=== PATIENT | female | born 1965 | race Caucasian/White ===

== ENCOUNTER 2018-09-14 10:38 | Emergency (ER) | payer MEDICARE, OTHER ==
[2018-09-14] MEDS ORDERED: HYDROcodone/Acetaminophen 5/325 mg Tablet ONE (11:49)
[2018-09-14] MEDS ORDERED: Ondansetron ODT 4 MG TAB ONE (11:49)
--- NOTE | 2018-09-14 12:11 | RAD ---
RIGHT CLAVICLE RADIOGRAPHS 2 VIEWS: DATE: 09/14/2018. PROVIDED CLINICAL HISTORY: Right shoulder pain status post injury. FINDINGS: There is no evidence for a fracture or other acute osseous abnormality involving the clavicle. Proxi mal humeral neck fracture is suspected. Correlate with dedicated shoulder radiographs. IMPRESSION: As above. POS: [facility]
[2018-09-14] MEDS ORDERED: Ketorolac Tromethamine 30 MG/ML VIAL ONE (12:36)
--- NOTE | 2018-09-14 12:47 | RAD ---
RIGHT SHOULDER 3 VIEWS: HISTORY: Fall. Right shoulder injury. FINDINGS: Acromioclavicular and glenohumeral alignment are maintained. Mild osteophytosis. Cortical remodelin g involving the posterolateral aspect of the right 2nd and 3rd ribs may represent old injuries. Prom inence of the central pulmonary interstitial markings may reflect pulmonary vascular congestion. IMPRESSION: No acute osseous abnormalities are demonstrated. POS: [facility]
== END 2018-09-14 13:07 | disposition home or self-care (01) ==
LOC: ERS 10:38
DX: S42.201A Unspecified fracture of upper end of right humerus, initial encounter for closed fracture (principal); W01.0XXA Fall on same level from slipping, tripping and stumbling without subsequent striking against object, initial encounter
CPT/HCPCS: 29105; 96374; J1885; Q0162

== ENCOUNTER 2019-06-25 07:57 | Outpatient (CLI) | payer MEDICARE, OTHER ==
--- NOTE | 2019-06-25 09:10 | MMO ---
Bilateral MAMMO Bilat Screen [facility]. CLINICAL HISTORY: Patient is 54 years old and is seen for screening. The patient has no family history of breast cancer. The patient has no personal history of cancer. VIEWS: The views performed were: bilateral craniocaudal with tomosynthesis and bilateral mediolateral oblique with tomosynthesis. FILMS COMPARED: The present examination has been compared to prior imaging studies performed at [facility] on 10/24/2011, 10/26/2012, 10/29/2013 and 06/19/2016. This study has been interpreted with the assistance of computer-aided detection. MAMMOGRAM FINDINGS: The breasts are almost entirely fat. Benign calcifications are noted bilaterally. There are no suspicious masses, suspicious calcifications, or new areas of architectural distortion. IMPRESSION: THERE IS NO MAMMOGRAPHIC EVIDENCE OF MALIGNANCY. A ROUTINE FOLLOW-UP MAMMOGRAM IN 1 YEAR IS RECOMMENDED. THE RESULTS OF THIS EXAM WERE SENT TO THE PATIENT. ACR BI-RADS Category 2 - Benign finding MAMMOGRAPHY NOTE: 1. A negative mammogram report should not delay a biopsy if a dominant of clinically suspicious mass is present. 2. Approximately 10% to 15% of breast cancers are not detected by mammography. 3. Adenosis and dense breasts may obscure an underlying neoplasm. Reported by: JUNO SILVESTRE MD Electonically Signed: [id number]
== END 2019-06-25 07:58 | disposition home or self-care (01) ==
LOC: BICMAMMO 07:57
PROVIDERS: ATTEND Family Medicine
DX: Z12.31 Encounter for screening mammogram for malignant neoplasm of breast (principal)
CPT/HCPCS: 77063; 77067

== ENCOUNTER 2019-08-01 20:30 | Outpatient (CLI) | payer MEDICARE, OTHER | END 2019-08-01 20:31 | disposition home or self-care (01) | LOC: SLEEPLAB 20:30 | PROVIDERS: ATTEND Family Medicine | DX: G47.33 Obstructive sleep apnea (adult) (pediatric) (principal); K21.9 Gastro-esophageal reflux disease without esophagitis; E66.9 Obesity, unspecified; F32.9 Major depressive disorder, single episode, unspecified | CPT/HCPCS: 95810 ==

== ENCOUNTER 2019-09-28 15:10 | Outpatient (CLI) | payer MEDICARE, OTHER ==
--- NOTE | 2019-09-28 15:28 | RAD ---
EXAM: Chest 2 views: HISTORY: Cough COMPARISON: None. FINDINGS: There is a normal-sized cardiomediastinal silhouette. Increased interstitial markings are present. A telectasis is seen in the right lung base. There is no evidence of consolidation, mass, or pleural effusion. The bones are unremarkable. IMPRESSION: No evidence of acute cardiopulmonary disease
== END 2019-09-28 15:11 | disposition home or self-care (01) ==
LOC: BICRAD 15:10
PROVIDERS: ATTEND Physician Assistant
DX: J40 Bronchitis, not specified as acute or chronic (principal)
CPT/HCPCS: 71046

== ENCOUNTER 2022-02-20 15:07 | Outpatient (CLI) | payer MEDICARE, MEDICAID | END 2022-02-20 15:08 | disposition home or self-care (01) | LOC: BICMAMMO 15:07 | PROVIDERS: ATTEND Family Medicine | DX: Z12.31 Encounter for screening mammogram for malignant neoplasm of breast (principal) | CPT/HCPCS: 77063; 77067 ==

== ENCOUNTER 2022-07-09 08:41 | Outpatient (CLI) | payer OTHER, MEDICAID | END 2022-07-09 08:42 | disposition home or self-care (01) | LOC: BICCT 08:41 | PROVIDERS: ATTEND Physician Assistant | DX: R10.32 Left lower quadrant pain (principal); R19.7 Diarrhea, unspecified; E27.8 Other specified disorders of adrenal gland; M47.816 Spondylosis without myelopathy or radiculopathy, lumbar region; M47.815 Spondylosis without myelopathy or radiculopathy, thoracolumbar region; M51.35 Other intervertebral disc degeneration, thoracolumbar region; M51.36 Other intervertebral disc degeneration, lumbar region | CPT/HCPCS: 74176 ==

== ENCOUNTER 2023-01-16 08:05 | Outpatient (CLI) | payer OTHER, MEDICAID | END 2023-01-16 08:06 | disposition home or self-care (01) | LOC: BICCT 08:05 | PROVIDERS: ATTEND Psychiatry & Neurology Neurology | DX: R41.3 Other amnesia (principal) | CPT/HCPCS: 70450 ==

== ENCOUNTER 2024-06-10 08:56 | Outpatient (CLI) | payer OTHER, MEDICAID | END 2024-06-10 08:57 | disposition home or self-care (01) | LOC: BICRAD 08:56 | PROVIDERS: ATTEND Nurse Practitioner Family | DX: R10.84 Generalized abdominal pain (principal) | CPT/HCPCS: 72220; 74019 ==

== ENCOUNTER 2024-06-18 15:11 | Outpatient (CLI) | payer OTHER, MEDICAID | END 2024-06-18 15:12 | disposition home or self-care (01) | LOC: BICCT 15:11 | PROVIDERS: ATTEND Family Medicine | DX: R10.84 Generalized abdominal pain (principal); R19.8 Other specified symptoms and signs involving the digestive system and abdomen; J98.4 Other disorders of lung; R91.8 Other nonspecific abnormal finding of lung field | CPT/HCPCS: 71046; 74176 ==

== ENCOUNTER 2024-09-20 08:46 | Inpatient (IN) | payer OTHER, MEDICAID ==
[2024-09-20] MEDS ORDERED: NOREPINEPHRINE 8 MG/250 ML-D5W 250 ML ONE (09:42)
[2024-09-20] MEDS ORDERED: cefTRIAXone (ROCEPHIN) 2 GM VIAL ONE (10:00)
[2024-09-20] MEDS ORDERED: Sodium Chloride 0.9% 100 ML ONE (10:01)
[2024-09-20] MEDS ORDERED: Azithromycin 500 MG VIAL ONE (10:01)
[2024-09-20 10:03] LABS: ALT (SGPT) 55 U/L (8-55); AST (SGOT) 27 U/L (5-34); Albumin 1.7 g/dL (3.5-5.0); Alkaline Phosphatase 224 U/L (40-110); Anion Gap 17 mmol/L (10-20); BUN (Urea Nitrogen) 26 mg/dL (9.8-20.1); Bilirubin, Total 1.4 mg/dL (0.2-1.2); Calc. Creatinine Clearance 0 mL/min (70-130); Calcium 7.7 mg/dL (7.8-10.44); Carbon Dioxide 18 mmol/L (22-29); Chloride 104 mmol/L (98-107); Estimated GFR 40; Globulin 4.2 g/dL (2.4-3.5); Glucose 95 mg/dL (70-105); Potassium 4.1 mmol/L (3.5-5.1); Protein, Total 5.9 g/dL (6.0-8.3); Sodium 135 mmol/L (136-145)
[2024-09-20 10:05] LABS: Troponin I 0.015 ng/mL (< 0.028)
[2024-09-20 10:12] LABS: INR-International Normal Ratio 1.3
[2024-09-20 10:13] LABS: PTT 59.7 sec (22.9-36.1)
[2024-09-20 10:16] LABS: Hematocrit 36.2 % (36.0-47.0); Hemoglobin 12.1 g/dL (12.0-16.0); Mean Corpuscular HGB CONC 33.4 g/dL (32.0-36.0); Mean Corpuscular Volume 101.7 fL (78.0-98.0); Mean Platelet Volume 10.5 fL (7.4-10.4); Platelet Count 169 10x3/uL (130-400); RBC Distribution Width 14.4 % (11.5-14.5); Red Blood Cell (RBC) Count 3.56 mill/uL (4.20-5.40)
[2024-09-20 10:38] LABS: Anisocytosis SLIGHT = 6-15 cells HPF (0-5); Band 6 % (5-11); Burr Cells SLIGHT = 2-5 cells HPF (0-1); Macrocytosis SLIGHT = 6-15 cells HPF (0-5); Monocytes 1 % (0-10); Neutrophil 93 % (42-75); Platelet Adequacy Comment Platelets Normal; Polychromasia SLIGHT = 2-3 cells HPF (0-2); Schistocytes SLIGHT = 2-5 cells HPF (0-1); Spherocytes SLIGHT = 1-5 cells HPF (None Seen); Vacuoles SLIGHT
[2024-09-20 10:53] LABS: Bilirubin 1+ (Negative); Blood, Urine 1+ (Negative); CAUTI Indications for Culture Pelvic or flank pain; Clarity Turbid (Clear); Glucose, Urine (Dipstick) Normal (Negative); Ketone, Urine Negative (Negative); Leukocyte 75 Leu/uL (Negative); Nitrite Negative (Negative); Protein, Urine (Dipstick) 50 mg/dL (Neg-Trace); Specific Gravity, Urine 1.026 (1.002-1.036); Squamous Epithelial 0-3 HPF (0-3); Urobilinogen 6 mg/dL (Less than 2); WBC/HPF 21-50 HPF (0-3); pH, Urine 5.5 (5.0-9.0)
[2024-09-20] MEDS ORDERED: KETAMINE 100 MG/ML (5ML VIAL) ONE (11:10)
[2024-09-20] MEDS ORDERED: Iopamidol-370 76% 500 ML MDV (1 ML CHARGE) ONE (11:13)
[2024-09-20 11:15] LABS: Bacteria/HPF 1+ HPF (None Seen); Urine Culture Reflex Yes Yes
[2024-09-20] MEDS ORDERED: LevoFLOXacin 750 mg/D5W 150 ml Premix Bag ONE (12:15)
[2024-09-20] MEDS ORDERED: EPINEPHrine 1 MG/ML VIAL ONE (12:35)
[2024-09-20] MEDS ORDERED: Bupivacaine PF 0.5% 30 ML VIAL ONE (12:35)
[2024-09-20] MEDS ORDERED: Glucagon 1 MG/ML KIT ONE (12:35)
[2024-09-20] MEDS ORDERED: PROPOFOL 20 ML ONE (12:39)
[2024-09-20] MEDS ORDERED: Ondansetron PF 4 MG/2 ML Vial ONE (12:39)
[2024-09-20] MEDS ORDERED: Midazolam HCl 2 mg/2 ml Vial ONE (12:39)
[2024-09-20] MEDS ORDERED: Rocuronium Bromide 10 MG/ML (10ML VIAL) ONE (12:39)
[2024-09-20] MEDS ORDERED: Lidocaine 1% PF 5 ML VIAL ONE (12:39)
[2024-09-20] MEDS ORDERED: Dexamethasone 20 MG/5 ML VIAL ONE (12:39)
[2024-09-20] MEDS ORDERED: fentaNYL 50 mcg/mL 1 mL Vial ONE (12:39)
[2024-09-20] MEDS ORDERED: Iopamidol 0 ML FS ONE (12:54)
[2024-09-20] MEDS ORDERED: Iopamidol 30 ML ONE (12:56)
[2024-09-20] MEDS ORDERED: Ondansetron PF 4 MG/2 ML Vial IVP PRN (13:01)
[2024-09-20 13:03] LABS: Lactic Acid 1.27 mmol/L (0.5-2.2)
[2024-09-20] MEDS ORDERED: Etomidate 40 MG (20 mL) VIAL ONE (13:09)
[2024-09-20] MEDS ORDERED: Vasopressin 20 UNITS/ML VIAL ONE (13:25)
[2024-09-20] MEDS ORDERED: PHENYLEPHRINE-NS 100 MCG/ML 10 ML SYRINGE ONE (14:11)
[2024-09-20] MEDS ORDERED: Morphine 2 MG/ML VIAL SLOW IVP PRN (15:00)
[2024-09-20] MEDS ORDERED: Lorazepam 2 MG/ML VIAL SLOW IVP PRN (15:00)
[2024-09-20] MEDS ORDERED: Ventilator Sedation Protocol FS SCH (15:00)
[2024-09-20] MEDS ORDERED: Fentanyl BOLUS 250 ML IVPB PRN (15:00)
[2024-09-20] MEDS ORDERED: Propofol 1,000 MG/100 ML VIAL IV PRN (15:00)
[2024-09-20] MEDS ORDERED: Propofol BOLUS 1,000 MG/100 ML VIAL IV PRN (15:00)
[2024-09-20] MEDS ORDERED: DISCONTINUE PREVIOUS NARCOTIC PAIN MEDICATIONS AND BENZODIAZEPINES FS SCH (15:00)
[2024-09-20] MEDS ORDERED: Sodium Chloride 0.9% 1,000 ML IV SCH (15:15)
[2024-09-20] MEDS: Pantoprazole 40 MG VIAL IVP SCH (15:21)
[2024-09-20] MEDS: Lactated Ringer's 1,000 ML IV SCH (15:21)
[2024-09-20 15:24] LABS: Actual Bicarbonate (HCO3a) 19.8 mEq/L (22-28); Base Excess (BEa) -6.1 mEq/L (-2.0 to +3.0); CO2 Tension 40.7 mmHg (35.0-45.0); Calcium, Ionized (arterial) 1.01 mmol/L (1.12-1.30); Carboxyhemoglobin (COHb) 0.7 gm% (0.0-3.0); Hematocrit-ABG 38 % (36.0-47.0); Hemoglobin (Hb) 12.8 g/dL (12.0-16.0); O2 Tension (PaO2), arterial 149.1 mmHg (> 80.0); Potassium - ABG Lab 3.58 mmol/L (3.70-5.30); pH, Arterial 7.305 (7.35-7.45)
[2024-09-20 15:25] LABS: ALV-art Gradient 513.025 mmHg (0-20); Puncture Site Left Radial artery
[2024-09-20] MEDS: Albuterol 2.5 MG (3 mL) NEB NEB SCH ×2 (15:29→18:33)
[2024-09-20 15:31] VITALS: BMI 29.0
[2024-09-20] MEDS: Albumin 25% 25 GM (100 mL) BOT IVPB SCH ×2 (15:45→17:47)
[2024-09-20] MEDS: Fentanyl CADD 100 ML IV SCH (16:34)
[2024-09-20] MEDS: Lactated Ringer's 500 ML IV SCH (17:43)
[2024-09-20] MEDS ORDERED: Ipratropium/Albuterol 3 ML NEB NEB SCH (18:30)
[2024-09-20] MEDS: Vancomycin (BATCH) 1.75 GM in Premix 1 BAG IVPB SCH (19:46)
[2024-09-20] MEDS: Enoxaparin 40 MG (0.4 mL) SYRINGE SC SCH (20:34)
[2024-09-20] MEDS ORDERED: Vancomycin 1 GM in Sodium Chloride 0.9% 250 ML 250 ML IVPB SCH (21:00)
[2024-09-20] MEDS ORDERED: Famotidine/PF 20 mg/2ml Vial SLOW IVP SCH (21:00)
[2024-09-20 21:21] LABS: Anisocytosis SLIGHT = 6-15 cells HPF (0-5); Band 3 % (5-11); Burr Cells SLIGHT = 2-5 cells HPF (0-1); Lymphocytes 2 % (21-51); Macrocytosis SLIGHT = 6-15 cells HPF (0-5); Neutrophil 95 % (42-75); Ovalocytes SLIGHT = 2-5 cells HPF (0-1); Platelet Adequacy Comment Platelets Normal; Polychromasia SLIGHT = 2-3 cells HPF (0-2)
[2024-09-20] MEDS ORDERED: metroNIDAZOLE 500 MG in Premix 1 BAG IVPB SCH (22:00)
[2024-09-20 22:58] LABS: Hematocrit 29.6 % (36.0-47.0); Hemoglobin 9.9 g/dL (12.0-16.0); Mean Corpuscular HGB CONC 33.4 g/dL (32.0-36.0); Mean Corpuscular Hemoglobin 33.9 pg (27.0-31.0); Mean Corpuscular Volume 101.4 fL (78.0-98.0); Mean Platelet Volume 10.3 fL (7.4-10.4); Platelet Count 182 10x3/uL (130-400); RBC Distribution Width 14.6 % (11.5-14.5); Red Blood Cell (RBC) Count 2.92 mill/uL (4.20-5.40)
[2024-09-21 03:39] LABS: Hematocrit 28.1 % (36.0-47.0); Hemoglobin 9.6 g/dL (12.0-16.0); Mean Corpuscular HGB CONC 34.2 g/dL (32.0-36.0); Mean Corpuscular Hemoglobin 34.3 pg (27.0-31.0); Mean Corpuscular Volume 100.4 fL (78.0-98.0); Mean Platelet Volume 10.3 fL (7.4-10.4); Platelet Count 161 10x3/uL (130-400); RBC Distribution Width 14.5 % (11.5-14.5)
[2024-09-21 03:47] LABS: Vancomycin, Random 21.2 ug/mL (See Comment)
[2024-09-21 03:48] LABS: Anion Gap 14 mmol/L (10-20); BUN (Urea Nitrogen) 13 mg/dL (9.8-20.1); Calc. Creatinine Clearance 87 mL/min (70-130); Calcium 7.8 mg/dL (7.8-10.44); Carbon Dioxide 19 mmol/L (22-29); Chloride 112 mmol/L (98-107); Estimated GFR 87; Glucose 153 mg/dL (70-105); Magnesium 1.7 mg/dL (1.6-2.6); Potassium 3.5 mmol/L (3.5-5.1); Sodium 141 mmol/L (136-145)
[2024-09-21 03:49] LABS: ALT (SGPT) 40 U/L (8-55); AST (SGOT) 28 U/L (5-34); Albumin 2.5 g/dL (3.5-5.0); Alkaline Phosphatase 157 U/L (40-110); Bilirubin, Direct 1.3 mg/dL (0.1-0.3); Bilirubin, Total 1.6 mg/dL (0.2-1.2); Phosphorus 1.6 mg/dL (2.3-4.7); Protein, Total 5.7 g/dL (6.0-8.3)
[2024-09-21 03:51] LABS: INR-International Normal Ratio 1.4; Prothrombin Time 17.1 sec (12.0-14.7)
[2024-09-21 03:52] LABS: PTT 43.6 sec (22.9-36.1)
[2024-09-21 04:11] LABS: Band 3 % (5-11); Hypersegmented Neutrophil SLIGHT (None Seen); Hypochromia SLIGHT = 6-15 cells HPF (0-5); Macrocytosis SLIGHT = 6-15 cells HPF (0-5); Neutrophil 97 % (42-75); Platelet Adequacy Comment Platelets Normal; Polychromasia SLIGHT = 2-3 cells HPF (0-2); Toxic Granulation SLIGHT; Vacuoles SLIGHT
[2024-09-21] MEDS: Levothyroxine Sodium 100 MCG TAB PO SCH (05:22)
[2024-09-21] MEDS ORDERED: Electrolyte Replacement Protocol FS PRN (07:15)
[2024-09-21 08:02] LABS: Actual Bicarbonate (HCO3a) 21.1 mEq/L (22-28); Base Excess (BEa) -1.6 mEq/L (-2.0 to +3.0); CO2 Tension 28.7 mmHg (35.0-45.0); Carboxyhemoglobin (COHb) 0.3 gm% (0.0-3.0); Hematocrit-ABG 29 % (36.0-47.0); Hemoglobin (Hb) 9.8 g/dL (12.0-16.0); O2 Tension (PaO2), arterial 115.4 mmHg (> 80.0); Potassium - ABG Lab 3.08 mmol/L (3.70-5.30); pH, Arterial 7.485 (7.35-7.45)
[2024-09-21] MEDS: Potassium Phosphate 30 MMOL, Magnesium Sulfate 2 GM in Sodium Chloride 0.9% 250 ML 250 ML IVPB SCH (08:15)
[2024-09-21 09:12] LABS: ALV-art Gradient 276.525 mmHg (0-20); Puncture Site Left Radial artery
[2024-09-21] MEDS: Pantoprazole 40 MG VIAL IVP SCH (09:25)
[2024-09-21] MEDS: Vancomycin HCl 750 MG in Sodium Chloride 0.9% 100 ML IVPB SCH (09:26)
[2024-09-21] MEDS: Lactated Ringer's 1,000 ML IV SCH (09:28)
[2024-09-21 11:35] LABS: Actual Bicarbonate (HCO3a) 23.3 mEq/L (22-28); CO2 Tension 58.9 mmHg (35.0-45.0); Calcium, Ionized (arterial) 1.15 mmol/L (1.12-1.30); Hematocrit-ABG 33 % (36.0-47.0); Hemoglobin (Hb) 11.2 g/dL (12.0-16.0); O2 Tension (PaO2), arterial 64.7 mmHg (> 80.0); Potassium - ABG Lab 3.48 mmol/L (3.70-5.30); pH, Arterial 7.215 (7.35-7.45)
[2024-09-21 11:49] LABS: Puncture Site Right Radial artery
[2024-09-21] MEDS: LevoFLOXacin 750 mg/D5W 750 MG in Premix 1 BAG IVPB SCH (13:06)
[2024-09-21 15:22] LABS: Actual Bicarbonate (HCO3a) 22.3 mEq/L (22-28); Base Excess (BEa) -3.2 mEq/L (-2.0 to +3.0); CO2 Tension 41.7 mmHg (35.0-45.0); Calcium, Ionized (arterial) 1.14 mmol/L (1.12-1.30); Carboxyhemoglobin (COHb) 0.3 gm% (0.0-3.0); Hematocrit-ABG 31 % (36.0-47.0); Hemoglobin (Hb) 10.5 g/dL (12.0-16.0); O2 Tension (PaO2), arterial 63.8 mmHg (> 80.0); Potassium - ABG Lab 3.74 mmol/L (3.70-5.30); pH, Arterial 7.346 (7.35-7.45)
[2024-09-21 15:23] LABS: Puncture Site Right Radial artery
[2024-09-21 15:24] LABS: ALV-art Gradient 83.715 mmHg (0-20)
[2024-09-21] MEDS: DC Sedation Protocol FS ONE (19:24)
[2024-09-21] MEDS: Vancomycin HCl 500 MG in Sodium Chloride 0.9% 100 ML IVPB SCH (19:26)
[2024-09-21] MEDS: Magnesium 2 GM/50 ML(in water) 2 GM in Premix 1 BAG IVPB SCH (19:26)
[2024-09-21] MEDS: NOREPINEPHRINE 8 MG/250 ML-D5W 250 ML IVPB SCH (21:29)
[2024-09-22] MEDS: diphenhydrAMINE 50 MG/ML VIAL IVP SCH ×2 (03:59→20:28)
[2024-09-22 04:03] LABS: Hematocrit 30.6 % (36.0-47.0); Hemoglobin 10.1 g/dL (12.0-16.0); Mean Corpuscular Hemoglobin 33.6 pg (27.0-31.0); Mean Corpuscular Volume 101.7 fL (78.0-98.0); Mean Platelet Volume 10.6 fL (7.4-10.4); Platelet Count 160 10x3/uL (130-400); RBC Distribution Width 14.8 % (11.5-14.5); Red Blood Cell (RBC) Count 3.01 mill/uL (4.20-5.40)
[2024-09-22 04:11] LABS: Vancomycin, Random 18.7 ug/mL (See Comment)
[2024-09-22 04:27] LABS: ALT (SGPT) 32 U/L (8-55); AST (SGOT) 23 U/L (5-34); Albumin 2.6 g/dL (3.5-5.0); Alkaline Phosphatase 145 U/L (40-110); Anion Gap 13 mmol/L (10-20); BUN (Urea Nitrogen) 10 mg/dL (9.8-20.1); Bilirubin, Total 0.7 mg/dL (0.2-1.2); Calc. Creatinine Clearance 103 mL/min (70-130); Calcium 8.2 mg/dL (7.8-10.44); Carbon Dioxide 20 mmol/L (22-29); Chloride 114 mmol/L (98-107); Estimated GFR 100; Globulin 3.6 g/dL (2.4-3.5); Glucose 102 mg/dL (70-105); Magnesium 2.4 mg/dL (1.6-2.6); Phosphorus 2.1 mg/dL (2.3-4.7); Potassium 3.8 mmol/L (3.5-5.1); Protein, Total 6.2 g/dL (6.0-8.3); Sodium 143 mmol/L (136-145)
[2024-09-22 05:44] LABS: Band 3 % (5-11); Macrocytosis SLIGHT = 6-15 cells HPF (0-5); Monocytes 3 % (0-10); Neutrophil 94 % (42-75); Platelet Adequacy Comment Platelets Normal; Polychromasia SLIGHT = 2-3 cells HPF (0-2)
[2024-09-22] MEDS: Meropenem 2 GM in Sodium Chloride 0.9% 100 ML IVPB SCH ×2 (08:55→16:51)
[2024-09-22] MEDS ORDERED: Meropenem 2 GM in Sodium Chloride 0.9% 100 ML IVPB SCH (14:00)
[2024-09-23] MEDS: Albumin 25% 25 GM (100 mL) BOT IVPB SCH (00:11)
[2024-09-23 05:17] LABS: #Basophils 0.03 10x3/uL (0.0-0.2); #Eosinophils Less than 0.03 10x3/uL (0.0-0.7); %Basophils 0.1 % (0.0-1.0); %Lymphocytes 2.9 % (21.0-51.0); %Monocytes 4.4 % (0.0-10.0); %Neutrophils 90.4 % (42.0-75.0); Hematocrit 29.5 % (36.0-47.0); Hemoglobin 9.6 g/dL (12.0-16.0); Mean Corpuscular HGB CONC 32.5 g/dL (32.0-36.0); Mean Corpuscular Hemoglobin 33.3 pg (27.0-31.0); Mean Corpuscular Volume 102.4 fL (78.0-98.0); Mean Platelet Volume 10.8 fL (7.4-10.4); Platelet Count 133 10x3/uL (130-400); RBC Distribution Width 15.2 % (11.5-14.5); Red Blood Cell (RBC) Count 2.88 mill/uL (4.20-5.40)
[2024-09-23 05:34] LABS: Anion Gap 10 mmol/L (10-20); BUN (Urea Nitrogen) 11 mg/dL (9.8-20.1); Calc. Creatinine Clearance 106 mL/min (70-130); Calcium 8.3 mg/dL (7.8-10.44); Carbon Dioxide 27 mmol/L (22-29); Chloride 111 mmol/L (98-107); Estimated GFR 100; Glucose 80 mg/dL (70-105); Potassium 3.5 mmol/L (3.5-5.1); Sodium 144 mmol/L (136-145)
[2024-09-23] MEDS: Lactated Ringer's 1,000 ML IV SCH ×2 (08:30→15:09)
[2024-09-23] MEDS: Potassium Chloride 40 MEQ in Premix 1 BAG IVPB SCH (09:33)
[2024-09-23] MEDS: Furosemide 20 MG (2 mL) VIAL SLOW IVP SCH (15:07)
[2024-09-24 04:25] LABS: #Basophils Less than 0.03 10x3/uL (0.0-0.2); #Eosinophils Less than 0.03 10x3/uL (0.0-0.7); %Basophils 0.2 % (0.0-1.0); %Lymphocytes 5.7 % (21.0-51.0); %Monocytes 6.2 % (0.0-10.0); %Neutrophils 83.2 % (42.0-75.0); Hematocrit 28.8 % (36.0-47.0); Hemoglobin 9.4 g/dL (12.0-16.0); Mean Corpuscular HGB CONC 32.6 g/dL (32.0-36.0); Mean Corpuscular Hemoglobin 33.7 pg (27.0-31.0); Mean Corpuscular Volume 103.2 fL (78.0-98.0); Platelet Count 125 10x3/uL (130-400); Red Blood Cell (RBC) Count 2.79 mill/uL (4.20-5.40)
[2024-09-24 04:35] LABS: Anion Gap 12 mmol/L (10-20); BUN (Urea Nitrogen) 11 mg/dL (9.8-20.1); Calc. Creatinine Clearance 116 mL/min (70-130); Carbon Dioxide 29 mmol/L (22-29); Chloride 106 mmol/L (98-107); Estimated GFR 102; Glucose 93 mg/dL (70-105); Potassium 3.4 mmol/L (3.5-5.1); Sodium 144 mmol/L (136-145)
[2024-09-24] MEDS: Potassium Chloride 20 MEQ in Premix 1 BAG IVPB SCH (09:01)
[2024-09-24] MEDS: Furosemide 20 MG (2 mL) VIAL SLOW IVP SCH (09:47)
[2024-09-24] MEDS: Levothyroxine 100 MCG SDV SLOW IVP SCH (10:07)
[2024-09-24 15:29] VITALS: BMI 28.6
[2024-09-24] MEDS: Acetaminophen 650 MG Suppository PR PRN (17:55)
[2024-09-25 05:03] LABS: Hematocrit 32.1 % (36.0-47.0); Hemoglobin 10.5 g/dL (12.0-16.0); Mean Corpuscular HGB CONC 32.7 g/dL (32.0-36.0); Mean Corpuscular Hemoglobin 32.9 pg (27.0-31.0); Mean Corpuscular Volume 100.6 fL (78.0-98.0); Mean Platelet Volume 11.9 fL (7.4-10.4); Platelet Count 127 10x3/uL (130-400); RBC Distribution Width 14.7 % (11.5-14.5); Red Blood Cell (RBC) Count 3.19 mill/uL (4.20-5.40)
[2024-09-25 05:29] LABS: Lymphocytes 3 % (21-51); Metamyelocyte 1 % (0-0); Monocytes 1 % (0-10); Neutrophil 95 % (42-75); Platelet Adequacy Comment Platelets Decreased; Polychromasia SLIGHT = 2-3 cells HPF (0-2)
[2024-09-25 05:37] LABS: Anion Gap 13 mmol/L (10-20); BUN (Urea Nitrogen) 14 mg/dL (9.8-20.1); Calc. Creatinine Clearance 108 mL/min (70-130); Calcium 9.3 mg/dL (7.8-10.44); Carbon Dioxide 35 mmol/L (22-29); Chloride 102 mmol/L (98-107); Estimated GFR 103; Glucose 108 mg/dL (70-105); Potassium 3.2 mmol/L (3.5-5.1); Sodium 147 mmol/L (136-145)
[2024-09-25] MEDS: Levothyroxine 100 MCG SDV SLOW IVP SCH (06:32)
[2024-09-25] MEDS: Potassium Chloride 20 MEQ in Premix 1 BAG IVPB SCH (09:00)
[2024-09-25 17:48] VITALS: BP 134/71
[2024-09-25 18:42] LABS: Magnesium 1.8 mg/dL (1.6-2.6); Potassium 3.4 mmol/L (3.5-5.1)
[2024-09-25 18:51] LABS: Phosphorus Less than 0.7 mg/dL (2.3-4.7)
[2024-09-25] MEDS: Potassium Phosphate 30 MMOL in Sodium Chloride 0.9% 250 ML 250 ML IVPB SCH (20:33)
[2024-09-25] MEDS: Magnesium 2 GM/50 ML(in water) 2 GM in Premix 1 BAG IVPB SCH (22:31)
[2024-09-25] MEDS: Albumin 25% 25 GM (100 mL) BOT IVPB SCH (22:32)
[2024-09-25] MEDS: D5 LR w/20 mEq KCL 1,000 ML IV SCH (22:59)
[2024-09-26 05:00] LABS: Phosphorus 2.5 mg/dL (2.3-4.7)
[2024-09-26 05:06] LABS: Anion Gap 14 mmol/L (10-20); BUN (Urea Nitrogen) 18 mg/dL (9.8-20.1); Calc. Creatinine Clearance 116 mL/min (70-130); Calcium 8.8 mg/dL (7.8-10.44); Carbon Dioxide 38 mmol/L (22-29); Chloride 103 mmol/L (98-107); Estimated GFR 104; Glucose 117 mg/dL (70-105); Magnesium 2.6 mg/dL (1.6-2.6); Potassium 3.7 mmol/L (3.5-5.1); Sodium 151 mmol/L (136-145)
[2024-09-26 05:19] LABS: Hematocrit 30.8 % (36.0-47.0); Hemoglobin 9.9 g/dL (12.0-16.0); Mean Corpuscular HGB CONC 32.1 g/dL (32.0-36.0); Mean Corpuscular Volume 102.7 fL (78.0-98.0); Mean Platelet Volume 12.1 fL (7.4-10.4); Platelet Count 122 10x3/uL (130-400); RBC Distribution Width 14.9 % (11.5-14.5)
[2024-09-26 06:08] LABS: Anisocytosis SLIGHT = 6-15 cells HPF (0-5); Band 2 % (5-11); Hypochromia SLIGHT = 6-15 cells HPF (0-5); Lymphocytes 3 % (21-51); Macrocytosis SLIGHT = 6-15 cells HPF (0-5); Monocytes 2 % (0-10); Neutrophil 92 % (42-75); Platelet Adequacy Comment Platelets Normal; Polychromasia SLIGHT = 2-3 cells HPF (0-2); Reactive Lymphocytes 1 % (0-10)
[2024-09-26 06:50] VITALS: TEMP 97.4
[2024-09-26] MEDS: Dextrose 5% in Water 1,000 ML IV SCH ×2 (07:40→18:43)
[2024-09-26] MEDS: Morphine 2 MG/ML VIAL SLOW IVP SCH (08:47)
[2024-09-26] MEDS: Dexmedetomidine In 0.9 % NaCl 100 ML IVPB SCH (09:04)
[2024-09-26 12:26] LABS: Anion Gap 8 mmol/L (10-20); BUN (Urea Nitrogen) 18 mg/dL (9.8-20.1); Calc. Creatinine Clearance 123 mL/min (70-130); Calcium 8.8 mg/dL (7.8-10.44); Carbon Dioxide 44 mmol/L (22-29); Chloride 101 mmol/L (98-107); Estimated GFR 106; Glucose 153 mg/dL (70-105); Potassium 3.4 mmol/L (3.5-5.1); Sodium 150 mmol/L (136-145)
[2024-09-26] MEDS: Potassium Chloride 20 MEQ in Premix 1 BAG IVPB SCH (14:51)
[2024-09-26] MEDS ORDERED: Morphine 2 MG/ML VIAL SLOW IVP PRN (18:12)
[2024-09-26] MEDS ORDERED: Scopolamine 1 mg/72 hour Patch TD PRN (18:13)
[2024-09-26] MEDS ORDERED: Atropine Sulfate 1% Ophth Soln 5 ml Bottle SL PRN (18:13)
[2024-09-26] MEDS ORDERED: GLYCOPYRROLATE/PF 0.2 MG/ML VIAL SLOW IVP PRN (18:21)
[2024-09-26] MEDS: Morphine 4 MG/ML VIAL ONE (18:27)
[2024-09-26] MEDS: Lorazepam 2 MG/ML VIAL SLOW IVP PRN (18:29)
[2024-09-26] MEDS: Lorazepam 2 MG/ML VIAL ONE (18:43)
[2024-09-26] MEDS: Albumin 25% 25 GM (100 mL) BOT IVPB SCH (18:43)
== END 2024-09-26 19:46 | disposition expired | DRG 853 ==
LOC: ERS 08:46 → SDC 13:43 → CCU 14:25 → IMCU/EMU 09-26 06:28
PROVIDERS: ADMIT Specialist; ATTEND Student in an Organized Health Care Education/Training Program
PROC: 0FT44ZZ Resection of Gallbladder, Percutaneous Endoscopic Approach (ICD-10-PCS; principal; 2024-09-20)
PROC: 0T9B70Z Drainage of Bladder with Drainage Device, Via Natural or Artificial Opening (ICD-10-PCS; 2024-09-20)
PROC: 02HV33Z Insertion of Infusion Device into Superior Vena Cava, Percutaneous Approach (ICD-10-PCS; 2024-09-20)
PROC: 4A133R1 Monitoring of Arterial Saturation, Peripheral, Percutaneous Approach (ICD-10-PCS; 2024-09-20)
PROC: 3E043XZ Introduction of Vasopressor into Central Vein, Percutaneous Approach (ICD-10-PCS; 2024-09-20)
PROC: 3E04329 Introduction of Other Anti-infective into Central Vein, Percutaneous Approach (ICD-10-PCS; 2024-09-20)
PROC: 30233J1 Transfusion of Nonautologous Serum Albumin into Peripheral Vein, Percutaneous Approach (ICD-10-PCS; 2024-09-20)
PROC: 5A09457 Assistance with Respiratory Ventilation, 24-96 Consecutive Hours, Continuous Positive Airway Pressure (ICD-10-PCS; 2024-09-21)
PROC: 5A0935A Assistance with Respiratory Ventilation, Less than 24 Consecutive Hours, High Flow/Velocity Cannula (ICD-10-PCS; 2024-09-24)
DX: A40.0 Sepsis due to streptococcus, group A (principal); I50.33 Acute on chronic diastolic (congestive) heart failure; R65.21 Severe sepsis with septic shock; J95.821 Acute postprocedural respiratory failure; J69.0 Pneumonitis due to inhalation of food and vomit; K80.00 Calculus of gallbladder with acute cholecystitis without obstruction; Z66 Do not resuscitate; Z51.5 Encounter for palliative care; N17.9 Acute kidney failure, unspecified; E87.20 Acidosis, unspecified; E87.1 Hypo-osmolality and hyponatremia; E44.0 Moderate protein-calorie malnutrition; N39.0 Urinary tract infection, site not specified; L03.221 Cellulitis of neck; E87.0 Hyperosmolality and hypernatremia; F03.94 Unspecified dementia, unspecified severity, with anxiety; F03.93 Unspecified dementia, unspecified severity, with mood disturbance; E87.6 Hypokalemia; E83.42 Hypomagnesemia; E83.39 Other disorders of phosphorus metabolism; E03.9 Hypothyroidism, unspecified; D53.9 Nutritional anemia, unspecified; Z79.82 Long term (current) use of aspirin; Z79.899 Other long term (current) drug therapy; Z79.01 Long term (current) use of anticoagulants; Z88.0 Allergy status to penicillin; Q90.9 Down syndrome, unspecified; M19.90 Unspecified osteoarthritis, unspecified site; M10.9 Gout, unspecified; Z98.890 Other specified postprocedural states; E27.8 Other specified disorders of adrenal gland; F32.A Depression, unspecified; F41.9 Anxiety disorder, unspecified; D63.8 Anemia in other chronic diseases classified elsewhere; I27.20 Pulmonary hypertension, unspecified
CPT/HCPCS: 36415; 36416; 36600; 51702; 70491; 71045; 71260; 74177; 76705; 80048; 80053; 80076; 80202; 81001; 82805; 83605; 83690; 83735; 83880; 84100; 84484; 85025; 85610; 85730; 86850; 86900; 86901; 87040; 87070; 87077; 87086; 87149; 87186; 87205; 87428; 88304; 89220; 93005; 93306; 94002; 94003; 94640; 94660; 94760; 96365; 96367; 96375; C1889; J0171; J0456; J0665; J0696; J1100; J1200; J1611; J1650; J1940; J1956; J2060; J2183; J2250; J2270; J2272; J2405; J2470; J2704; J3010; J3370; J3475; J3480; J7050; J7070; J7120; J7611; P9047; Q9967